=== PATIENT | female | born 1965 | race Hispanic/Latino ===

== ENCOUNTER → 2019-01-02 | Outpatient (CLI) | payer OTHER ==
--- NOTE | 2019-01-02 12:52 | Diagnostic Imaging Report ---
Lumbar spine series, 5 views. Sacrum, 2 views. History: Low back pain. Comparison: None available. Discussion: The paraspinal soft tissues are unremarkable. The alignment of the lumbar spine is normal. There is no evidence of fracture, spondylolisthesis, or spondylolysis. The intervertebral disc spaces are within normal limits. Scattered osteophytes are present in the lower thoracic and lumbar spine. Mild sclerosis of the SI joints is noted bilaterally. 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 Signed by: Rangel Chan on 01/02/2019 12:48 PM
== END ==
LOC: RAD 11:08
PROVIDERS: ATTEND Internal Medicine
DX: M54.5 Low back pain (principal)
CPT/HCPCS: 72110; 72220